=== PATIENT | male | born 1950 | race Caucasian/White ===

== ENCOUNTER → 2016-04-17 | Outpatient (CLI) | payer OTHER, BC | LOC: MMPC 09:00 | DX: R60.0 Localized edema (principal) | CPT/HCPCS: 99212; G0463 ==

== ENCOUNTER → 2016-06-24 | Outpatient (CLI) | payer OTHER, BC ==
[2016-06-24 11:15] LABS: BASOPHILS # (AUTO) 0.05 10*3/UL; BASOPHILS % (AUTO) 0.7 % (0-1); EOSINOPHILS # (AUTO) 0.16 10*3/UL; EOSINOPHILS % (AUTO) 2.1 % (0-8); HEMATOCRIT 43.3 % (42.0-52.0); HEMOGLOBIN 14.9 g/dL (14.0-18.0); LYMPHOCYTES # (AUTO) 2.66 10*3/uL; MEAN CORPUSCULAR HEMOGLOBIN 31.1 PG (27-31); MEAN CORPUSCULAR HGB CONC 34.4 g/dL (33-37); MEAN CORPUSCULAR VOLUME 90.4 FL (80-90); MEAN PLATELET VOLUME 10.5 FL (7.4-12.2); MONOCYTES # (AUTO) 0.67 10*3/UL (0.3-0.8); MONOCYTES % (AUTO) 8.9 % (5-15); NEUTROPHILS # (AUTO) 3.96 10*3/UL; NEUTROPHILS % (AUTO) 52.8 % (50-80); RED BLOOD COUNT 4.79 10^6/uL (4.70-6.10)
[2016-06-24 11:22] LABS: PLATELET MORPHOLOGY COMMENT NORMAL MORPHOLOGY (NORM); RBC MORPHOLOGY COMMENT NORMAL MORPHOLOGY (NORM); WBC MORPHOLOGY COMMENT NORMAL MORPHOLOGY (NORM)
[2016-06-24 11:32] LABS: BLOOD UREA NITROGEN 24 mg/dL (7-22); CALCIUM 9.3 mg/dL (8.7-10.7); CHOL/HDL RATIO 4.73 RATIO (0-4.0); EST GLOMERULAR FILTRATION > 60 (>60 ml/min/1.73m(2)); HDL CHOLESTEROL 38 mg/dL (40-150); SERUM ALBUMIN 4.2 g/dL (3.5-4.8); SERUM CHOLESTEROL 180 mg/dL (120-200)
[2016-06-24 11:32] LABS: BILIRUBIN,URINE NEGATIVE (NEG); COLOR,URINE YELLOW; GLUCOSE, URINE (UA) NEGATIVE (NEG); NITRATE,URINE NEGATIVE (NEG); OCCULT BLOOD,URINE NEGATIVE (NEG); PROTEIN,URINE TRACE mg/dl (NEG); UROBILINOGEN,URINE 0.2 mg/dL (0.2)
[2016-06-24 11:36] LABS: CLARITY,URINE CLEAR (CLEAR)
[2016-06-24 11:48] LABS: URINE SAMPLE TYPE CLEAN CATCH URINE
[2016-06-24 13:53] LABS: VITAMIN D 25-HYDROXY 47.9 NG/ML (30-100)
== END ==
LOC: MOB LAB 10:26
DX: E78.5 Hyperlipidemia, unspecified (principal); I10 Essential (primary) hypertension; R04.0 Epistaxis; E55.9 Vitamin D deficiency, unspecified; Z12.5 Encounter for screening for malignant neoplasm of prostate
CPT/HCPCS: 36415; 80053; 80061; 81001; 82306; 84443; 85025; G0103

== ENCOUNTER → 2016-06-27 | Outpatient (CLI) | payer OTHER, BC ==
--- NOTE | 2016-06-27 14:34 | DI ---
CT CHEST W/CONTRAST,06/27/2016 12:56 PM: Clinical History: Pulmonary nodule. Previous Exam: July 31, 2015 Findings: Multiple helically acquired CT images are obtained through the chest following the intravenous admini stration of contrast, and demonstrate a small 5 mm nodule abutting the minor fissure on the right unc hanged from the prior exam. A pacemaker device is also stable. The upper abdomen demonstrates the complex cystic mass within the left kidney superior pole. Peripher al vascular calcifications are noted. There is no mesenteric nor retroperitoneal lymphadenopathy. There are a few coronary artery calcifications identified. Impression: The 5 mm nodule abutting the right major fissure. The Fleischner Society guidelines would dictate no further followup in a low-risk patient. If this pa tient is at high risk, followup imaging could be performed in 18-24 months.
--- NOTE | 2016-06-27 14:34 | DI ---
CT ABDOMEN W/CONTRAST,06/27/2016 12:56 PM: Clinical History: Complex lesion within the left kidney. Previous Exam: August 01, 2015 Findings: Multiple helically acquired CT images are obtained through the abdomen and pelvis with contrast, and demonstrate a macrolobulated cystic mass involving the left kidney superior pole measuring 9.0 x 6.3 x 5.1 cm and containing multiple thin septa none of which demonstrate measurable enhancement. There i s a claw sign noted surrounding the kidney. There is no hydronephrosis. The renal arteries and veins are normal without evidence of invasion. There is no lymphadenopathy. There is mild diffuse fatty infiltration of the liver. The gallbladder appears grossly normal. The adrenals and spleen and pancreas are unremarkable. The st omach, large and small bowel loops are not well evaluated. A few peripheral vascular calcifications a re seen and mild degenerative changes of the spine are noted. There is a pacemaker device within the heart in good position. Impression: 1. Lobulated 9.0 x 6.3 x 5.1 cm cystic mass containing multiple thin septa without measurable enhance ment. 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 Recommend yearly followup with [address]
== END ==
LOC: CT 12:49
DX: R91.1 Solitary pulmonary nodule (principal); N28.1 Cyst of kidney, acquired; R93.422 Abnormal radiologic findings on diagnostic imaging of left kidney; Z87.891 Personal history of nicotine dependence
CPT/HCPCS: 71260; 74160

== ENCOUNTER → 2016-08-26 | Outpatient (CLI) | payer OTHER, BC | LOC: MMPC 11:11 | PROVIDERS: ATTEND Physician Assistant | DX: M79.675 Pain in left toe(s) (principal) | CPT/HCPCS: 99212; G0463 ==

== ENCOUNTER → 2016-09-12 | Outpatient (CLI) | payer OTHER, BC ==
[2016-09-12 16:16] LABS: BLOOD UREA NITROGEN 21 mg/dL (7-22); CALCIUM 9.4 mg/dL (8.7-10.7); EST GLOMERULAR FILTRATION > 60 (>60 ml/min/1.73m(2)); URIC ACID 7.2 mg/dl (3.8-8.5)
== END ==
LOC: MOB LAB 14:35
DX: M10.072 Idiopathic gout, left ankle and foot (principal); K22.70 Barrett's esophagus without dysplasia; I10 Essential (primary) hypertension; K21.9 Gastro-esophageal reflux disease without esophagitis; R00.1 Bradycardia, unspecified; E55.9 Vitamin D deficiency, unspecified; R56.9 Unspecified convulsions; G47.33 Obstructive sleep apnea (adult) (pediatric); Z86.718 Personal history of other venous thrombosis and embolism
CPT/HCPCS: 36415; 80048; 84550